=== PATIENT | female | born 1985 | race Caucasian/White ===

== ENCOUNTER 2025-02-25 10:41 | Emergency (ER) | payer OTHER ==
[~2025-02-25] VITALS: Ht 167.6 cm; Wt 78.0 kg
[2025-02-25] MEDS ORDERED: ACETAMINOPHEN ES 500 MG TABLET ONE (11:36)
[2025-02-25] MEDS: ACETAMINOPHEN ES 500 MG TABLET PO ONE (11:49)
[2025-02-25 13:39] VITALS: BP 107/81; TEMP 98.1; O2SAT 99
== END 2025-02-25 13:42 | disposition home or self-care (01) ==
LOC: ER 10:47
DX: S00.83XA Contusion of other part of head, initial encounter (principal); F31.9 Bipolar disorder, unspecified; Z88.0 Allergy status to penicillin; W01.0XXA Fall on same level from slipping, tripping and stumbling without subsequent striking against object, initial encounter; Y93.89 Activity, other specified; Y92.89 Other specified places as the place of occurrence of the external cause; Y99.8 Other external cause status
CPT/HCPCS: 70486-TC